=== PATIENT | male | born 1970 | race Two or more races ===

== ENCOUNTER 2020-05-31 16:55 | Emergency (ER) | payer MEDICAID ==
[~2020-05-31] VITALS: Ht 180.3 cm; Wt 99.8 kg
[2020-05-31] MEDS ORDERED: METF-440 PO (17:13)
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
[2020-05-31] MEDS ORDERED: LABETALOL HCL IV 100MG VIAL ONE (17:23)
[2020-05-31 17:24] LABS: BASOPHILS # (AUTO) 0.1 /CMM (0.0-0.2); BASOPHILS % (AUTO) 0.6 % (0.0-2.0); EOSINOPHILS % (AUTO) 2.3 % (0.0-6.0); HEMATOCRIT 43 % (39-51); HEMOGLOBIN 14.2 g/dL (13.5-17.5); LYMPHOCYTES # (AUTO) 3.9 /CMM (0.8-4.8); LYMPHOCYTES % (AUTO) 34.8 % (20.0-44.0); MEAN CORPUSCULAR HGB CONC 33 g/dl (31.0-36.0); MEAN CORPUSCULAR VOLUME 86 fL (80-96); MONOCYTES # (AUTO) 0.7 /CMM (0.1-1.30); MONOCYTES % (AUTO) 6.2 % (2.0-12.0); NEUTROPHILS # (AUTO) 6.2 /CMM (1.8-8.9); NEUTROPHILS % (AUTO) 56.1 % (43.0-81.0); PLATELET COUNT (AUTO) 267 /CMM (150-450); RED BLOOD CELL COUNT(AUTO) 4.99 MIL/uL (4.5-6.0); WHITE BLOOD COUNT (AUTO) 11.1 K/uL (4.3-11.0)
[2020-05-31 17:27] LABS: CALCIUM, SERUM 9.4 mg/dL (8.5-10.1); CARBON DIOXIDE 30 mmol/L (21-32); CHLORIDE 99 mmol/L (98-107); CREATININE 0.9 mg/dL (0.6-1.3); GLUCOSE 261 mg/dL (74-106); POTASSIUM 3.9 mmol/L (3.5-5.1); SODIUM SERUM 136 mmol/L (136-145); UREA NITROGEN, BLOOD 14 mg/dL (7-18)
[2020-05-31] MEDS ORDERED: LABETALOL 20 MG/4 ML VIAL IV ONE (17:30)
[2020-05-31] MEDS ORDERED: OLME20TA13 PO (17:57)
[2020-05-31] MEDS ORDERED: CLON0.1T PO ×2 (18:33→18:38)
[2020-05-31] MEDS ORDERED: OLME1TAB34 PO ×2 (18:33→18:38)
[2020-05-31 19:05] LABS: CHOLESTEROL 241 mg/dL (<200); HDL CHOLESTEROL 33 mg/dL (40-60); LDL 176 mg/dL (0-99); TRIGLYCERIDES 246 mg/dL (30-150)
[2020-05-31 19:20] VITALS: BP 151/78
== END 2020-05-31 19:21 | disposition home or self-care (01) ==
LOC: ER 17:02
DX: I10 Essential (primary) hypertension (principal); H02.402 Unspecified ptosis of left eyelid; E11.9 Type 2 diabetes mellitus without complications; F17.200 Nicotine dependence, unspecified, uncomplicated; Z79.899 Other long term (current) drug therapy; Z79.84 Long term (current) use of oral hypoglycemic drugs
CPT/HCPCS: 36415; 70450; 71045; 80048; 80061; 84484; 85025; 85730; 93005; 96374; 99285; J3490 ×2